=== PATIENT | male | born 1950 | race Caucasian/White ===

== ENCOUNTER 2016-05-27 10:59 | Emergency (ER) | payer OTHER ==
[~2016-05-27 10:59] MED LIST: ACET325T33 PO; BEN25 PO; BENZ100C70 PO; HC30CR25 TOP
== END 2016-05-27 11:11 | disposition left against medical advice (07) ==
LOC: FTE 10:59
DX: Z53.21 Procedure and treatment not carried out due to patient leaving prior to being seen by health care provider (principal)

== ENCOUNTER 2016-10-29 19:48 | Emergency (ER) | payer SELFPAY ==
[~2016-10-29] VITALS: Ht 182.9 cm; Wt 71.5 kg
[2016-10-29 20:22] VITALS: Ht 182.9 cm; Wt 71.5 kg
== END 2016-10-29 20:22 | disposition left against medical advice (07) ==
LOC: E/R 19:48
DX: Z53.21 Procedure and treatment not carried out due to patient leaving prior to being seen by health care provider (principal)

== ENCOUNTER 2018-07-16 12:09 | Emergency (ER) | payer SELFPAY ==
[~2018-07-16] VITALS: Ht 167.6 cm; Wt 69.9 kg
[~2018-07-16 12:09] MED LIST changes: +BENZ-6 PO; -BENZ100C70 PO
[2018-07-16 12:14] VITALS: BP 139/78; PULSE 87; RESP 20; Ht 167.6 cm; Wt 69.9 kg
== END 2018-07-16 13:26 | disposition left against medical advice (07) ==
LOC: E/R 12:09
DX: Z53.21 Procedure and treatment not carried out due to patient leaving prior to being seen by health care provider (principal)

== ENCOUNTER 2018-07-20 10:09 | Emergency (ER) | payer MEDICARE, OTHER ==
[~2018-07-20] VITALS: Ht 182.9 cm; Wt 65.0 kg
[2018-07-20 10:14] VITALS: BP 172/78; PULSE 78; RESP 18; Ht 182.9 cm; Wt 65.0 kg
[2018-07-20] MEDS ORDERED: HYDR-3029 PO (11:14)
--- NOTE | 2018-07-20 12:55 | ERD ---
ER Documentation Chief Complaint Chief Complaint rash on abdomen and states gets aggitated easily has a lot of energy HPI 68-year-old male presenting with complaints of agitation. Patient states that he feels like he has too much energy and he becomes very hostile in normal circumstances. He states he can get very aggressive with driving and he is unsure why he feels this way. He denies any fevers. He denies any head injuries. Patient states this is been going on for a long period of time and he has not taken any medical attention for his complaint. Patient is also complaining about a rash all over his body. This is been going on for excessive amounts of time and he states it causes him to itch and bleed. He has not taken medication or use creams. Denies other medical problems. NKDA. Surgical history denies. Social history denies ROS All systems reviewed and are negative except as per history of present illness. Medications Home Meds Active Scripts Hydroxyzine Hcl* (Hydroxyzine Hcl*) 10 Mg Tablet, 10 MG PO Q6H PRN for ITCHING, #30 TAB Prov:ADE PADGETT PA-C 07/20/18 Hydrocortisone* Topical (Hydrocortisone* Topical) 2.5%-28.3 Gm Cream..g., 1 APPLIC TOP BID for 7 Days, TUB Prov:PATIENCE URENA PA-C 07/12/15 Diphenhydramine Hcl* (Benadryl*) 25 Mg Cap, 25 MG PO Q6 for ITCHING, #14 CAP Prov:PATIENCE URENA PA-C 07/12/15 Acetaminophen* (Tylenol*) 325 Mg Tablet, 1 TAB PO Q6 PRN for PAIN AND OR ELEVATED TEMP, #20 TAB Prov:NAMAN HERNANDEZ PA-C 12/21/14 Benzonatate* (Tessalon Perle*) 100 Mg Capsule, 100 MG PO TID, #30 CAP Prov:NAMAN HERNANDEZ PA-C 12/21/14 Allergies Allergies: Coded Allergies: No Known Allergy (Unverified , 10/29/16) PMhx/Soc History of Surgery: No Anesthesia Reaction: No Hx Neurological Disorder: No Hx Respiratory Disorders: No Hx Cardiac Disorders: No Hx Psychiatric Problems: No Hx Miscellaneous Medical Probl: No Hx Alcohol Use: No Hx Substance Use: No Hx Tobacco Use: No FmHx Family History: No diabetes, No coronary disease, No other Physical Exam Vitals Vital Signs Date Temp Pulse Resp B/P (MAP) Pulse Ox O2 O2 Flow FiO2 Time Delivery Rate 07/20/18 98.1 78 18 172/78 100 10:14 (109) Physical Exam GENERAL: The patient is well-appearing, well-nourished, in no acute distress HEENT: Atraumatic. Conjunctivae are pink. Pupils equal, round, and reactive to light. There is no scleral icterus. Tympanic membranes clear bilaterally. Oropharynx clear. CHEST: Clear to auscultation bilaterally. There are no rales, wheezes or rhonchi. HEART: Regular rate and rhythm. No murmurs, clicks, rubs or gallops. SKIN: Dry skin noted throughout with no excoriations or abrasions. No vesicles or pustules. Procedures/MDM MDM: 68-year-old male presenting with complaints of agitation. I recommended patient to follow-up with psychiatry. Patient's exam of his skin is within n ormal limits and I have low suspicion for bacterial infectious process. Patient is discharged with strict ER precautions. Patient is told symptoms change or worsen to return the ER. I discharge patient with supportive medications. All questions answered at discharge Departure Diagnosis: Primary Impression: Rash Condition: Stable Patient Instructions: Self-Care for Skin Rashes Referrals: TYRON SALINAS (PCP) Additional Instructions: FOLLOW UP WITH YOUR PRIMARY CARE PHYSICIAN TOMORROW.Return to this facility if you are not improving as expected. ADE PADGETT PA-C July 20, 2018 12:55
== END 2018-07-20 11:47 | disposition home or self-care (01) ==
LOC: FTE 10:09
DX: R21 Rash and other nonspecific skin eruption (principal)
CPT/HCPCS: 99283

== ENCOUNTER 2018-08-31 16:55 | Emergency (ER) | payer MEDICARE, OTHER ==
[~2018-08-31] VITALS: Ht 170.2 cm; Wt 67.9 kg
[~2018-08-31 16:55] MED LIST changes: +HYDR-3029 PO
[2018-08-31 17:24] VITALS: Ht 170.2 cm; Wt 67.9 kg
--- NOTE | 2018-08-31 20:16 | ERD ---
ER Documentation Chief Complaint Chief Complaint cough & congestion x1mth, speaking full sentences HPI Patient is a 68 years old male with no known PMHx presenting to the clinic for persistent cough x 1 month. Patient reports of occasional clear sputum production, fever, coryza, and mild throat pain. Patient reports taking OTC Robitussin without resolution. Patient reports cough is worst at night time and prevents him from sleeping. Patient denies chills, night sweats, SOB, wheezing. ROS All systems reviewed and are negative except as per history of present illness. Medications Home Meds Active Scripts Azithromycin* (Zithromax*) 500 Mg Tablet, 500 MG PO DAILY for 3 Days, TAB Prov:BEATRIZ GUZMAN PA-C 08/31/18 Dextromethorphan Hb-Promethazine Hcl* (Promethazine DM* Syrup) 473 Ml Syrup, 5 ML PO Q6 PRN for COUGH for 7 Days, ML Prov:BEATRIZ GUZMAN PA-C 08/31/18 Hydroxyzine Hcl* (Hydroxyzine Hcl*) 10 Mg Tablet, 10 MG PO Q6H PRN for ITCHING, #30 TAB Prov:ADE PADGETT PA-C 07/20/18 Hydrocortisone* Topical (Hydrocortisone* Topical) 2.5%-28.3 Gm Cream..g., 1 APPLIC TOP BID for 7 Days, TUB Prov:PATIENCE URENA PA-C 07/12/15 Diphenhydramine Hcl* (Benadryl*) 25 Mg Cap, 25 MG PO Q6 for ITCHING, #14 CAP Prov:PATIENCE URENA PA-C 07/12/15 Acetaminophen* (Tylenol*) 325 Mg Tablet, 1 TAB PO Q6 PRN for PAIN AND OR ELEVATED TEMP, #20 TAB Prov:NAMAN HERNANDEZ PA-C 12/21/14 Benzonatate* (Tessalon Perle*) 100 Mg Capsule, 100 MG PO TID, #30 CAP Prov:NAMAN HERNANDEZ PA-C 12/21/14 Allergies Allergies: Coded Allergies: No Known Allergy (Unverified , 10/29/16) PMhx/Soc Medical and Surgical Hx: pt denies Medical Hx, pt denies Surgical Hx History of Surgery: No Anesthesia Reaction: No Hx Neurological Disorder: No Hx Respiratory Disorders: No Hx Cardiac Disorders: No Hx Psychiatric Problems: No Hx Miscellaneous Medical Probl: No Hx Alcohol Use: No Hx Substance Use: No Hx Tobacco Use: No FmHx Family History: No diabetes, No coronary disease, No other Physical Exam Vitals Vital Signs Date Temp Pulse Resp B/P (MAP) Pulse Ox O2 O2 Flow FiO2 Time Delivery Rate 08/31/18 97.4 83 18 111/59 97 17:24 (76) Physical Exam Const: No acute distress Head: Atraumatic Eyes: Normal Conjunctiva ENT: Normal External Ears, Nose and Mouth. No oropharyngeal erythema or edema. Neck: Full range of motion. No meningismus. Resp: Diminished breath sounds bilaterally. Cardio: Regular rate and rhythm, no murmurs Neur: Awake and alert Psych: Normal Mood and Affect Results 24 hrs Current Medications Medications Dose Sig/Arvin Start Time Status Last (Trade) Ordered Route PRN Stop Time Admin Dose Reason Admin Ceftriaxone 1 gm ONCE ONCE 08/31/18 Sodium IM 22:30 (Rocephin) 08/31/18 22:31 Procedures/MDM Patient was seen and evaluated for persistent cough x 1 month. Patient's CXR revealed Patchy infiltrate in the lingula and possibly right middle lobe, most likely pneumonia. Patient was given Rocephin 1G IM. Patient in no respiratory distress. Patient is stable and ready for discharge. Patient was advised about f/u with PCP. Departure Diagnosis: Primary Impression: Cough Condition: Stable Patient Instructions: Cough, Chronic, Uncertain Cause, (Adult) Referrals: [facility] [place] Additional Instructions: Paciente aconseja volver a Departamento de urgencias inmediatamente para sntomas nuevos o que empeoran . Paciente aconseja posteriores con el PCP en 2-3 sumner . Paciente verbaliza la comprehensin y est de acuerdo con el tratamiento y el curso de accin. Si el paciente no tiene ninguna de atencin primaria pueden seguir con [facility] [address] [place] [address] [facility] + [address] [phone] BEATRIZ GUZMAN PA-C Aug 31, 2018 20:16
[2018-08-31] MEDS ORDERED: AZIT250T PO (20:58)
[2018-08-31] MEDS ORDERED: D-ME473S2 PO (20:58)
[2018-08-31] MEDS ORDERED: AZIT500T3 PO (22:11)
[2018-08-31 22:24] VITALS: BP 124/60; PULSE 83; RESP 18
[2018-08-31] MEDS ORDERED: CEFTRIAXONE 1 GM INJ IM ONE (22:30)
== END 2018-08-31 22:25 | disposition home or self-care (01) ==
LOC: FTE 16:55
DX: R05 Cough (principal)
CPT/HCPCS: 71046; 96372; 99284; J0696